=== PATIENT | female | born 1960 | race Caucasian/White ===

== ENCOUNTER 2020-01-20 07:58 | Day surgery (SDC) | payer BC ==
[2020-01-20] VITALS (7 sets, daily range): BP systolic 131–136; BP diastolic 67–76
[~2020-01-20] VITALS: Ht 160 cm; Wt 48.0 kg
[~2020-01-20 07:58] MED LIST: ASPI-1094 PO; CHOL50004 PO; FURO40TA4 PO; METOPROLOL PO; SPIR25TA5 PO; VITA-134 PO
[2020-01-20] MEDS ORDERED: normal saline 1000ml 1,000 ML IV PRN (08:35)
[2020-01-20] MEDS ORDERED: albumin 25% 100mL bottle x 1 IV PRN (08:35)
[2020-01-20] MEDS ORDERED: LEVO50TA8 PO (08:36)
[2020-01-20] MEDS ORDERED: POTA10TA36 PO (08:37)
[2020-01-20] MEDS ORDERED: OMEP-50 PO (08:39)
[2020-01-20] MEDS ORDERED: PYRI100T10 PO (08:39)
[2020-01-20] MEDS ORDERED: ONDA8TAB6 PO (08:40)
[2020-01-20] MEDS ORDERED: LEVO500T2 PO (08:41)
[2020-01-20] MEDS ORDERED: CAPE500T PO (08:53)
== END 2020-01-20 10:40 | disposition home or self-care (01) ==
LOC: SSTAY O 07:58
PROVIDERS: ATTEND Radiology Vascular & Interventional Radiology
DX: R18.0 Malignant ascites (principal); C50.919 Malignant neoplasm of unspecified site of unspecified female breast; C79.51 Secondary malignant neoplasm of bone; M81.0 Age-related osteoporosis without current pathological fracture; D64.9 Anemia, unspecified; E87.1 Hypo-osmolality and hyponatremia; Z79.899 Other long term (current) drug therapy
CPT/HCPCS: 49083; C1729; J2001